=== PATIENT | male | born 1980 | race Caucasian/White ===

== ENCOUNTER 2023-01-02 15:34 | Outpatient (CLI) | payer BC | END 2023-01-02 15:35 | disposition home or self-care (01) | LOC: BICULT 15:34 | PROVIDERS: ATTEND Family Medicine | DX: E83.52 Hypercalcemia (principal); E04.9 Nontoxic goiter, unspecified; R93.89 Abnormal findings on diagnostic imaging of other specified body structures | CPT/HCPCS: 76536 ==